=== PATIENT | female | born 1975 | race Caucasian/White ===

== ENCOUNTER 2017-06-23 18:31 | Emergency (ER) | payer OTHER ==
[2017-06-23] MEDS ORDERED: SUMAtriptan SQ* 6 MG/0.5 ML VIAL SUBCUT ONE (19:46)
[2017-06-23] MEDS ORDERED: SUMAtriptan SQ* 6 MG/0.5 ML VIAL ONE (19:47)
--- NOTE | 2017-06-23 19:53 | UC ---
Wanda Gallegos Gabriel, scribed for Tawana Walters MD on 06/23/17 at 1945 . Headache HPI - HPI Summary HPI Summary: This patient is a 42 year old F presenting to [facility] with a chief complaint of migraine JAVIER since yesterday that is getting worse. The patient rates the pain 9/ 10 in severity and describes it as crushing pain across frontal region. Patient reports photophobia, chills, lightheaded. Pt with nausea, no vomiting. Pt states has a h/o migraines and this feels the same. Pt states previously treated with imitrex. Pt does not currently have any. Pt has not had a migraine in 2-3 years. Patient denies ear pain, vision changes, and sore throat. She has taken ASA with no relief, pt is requesting Imitrex. She has a history of migraines and they are usually triggered by her period. Patient says these symptoms are similar to ones from her previous migraines. She was able to drive herself here without difficulty except for car lights. LNMP was 10 days ago. Medications reviewed on this visit. - History Of Current Complaint Chief Complaint: UCHeadache Stated Complaint: HEADACHE Time Seen by Provider: 06/23/17 19:37 Hx Obtained From: Patient Hx Last Menstrual Period: 06/15/17 Onset/Duration: Lasting Days - 1, Still Present Pain Intensity: 9 Pain Scale Used: 0-10 Numeric Timing: Constant Character: Throbbing, Pressure, Migraine Aggravating Factor(s): Bright Lights Associated Signs And Symptoms: Positive: Dizziness, Nausea, Other (Noted In Comments) - photophobia, chills, lightheaded, and productive cough - Allergies/Home Medications Allergies/Adverse Reactions: Allergies Allergy/AdvReac Type Severity Reaction Status Date / Time Penicillins Allergy Hives Verified 06/23/17 18:59 Home Medications: Home Medications Ibuprofen [Ibuprofen 200 MG] 200 mg PO ONCE 06/23/17 [History Confirmed 06/23/17 ] PMH/Surg Hx/FS Hx/Imm Hx Previously Healthy: No Neurological History: Migraine Psychological History: Other - PTSD Other Psychological History: PTSD - Surgical History Surgical History: Yes Surgery Procedure, Year, and Place: September 2016 - fibroid removal - Family History Known Family History: Negative: Cardiac Disease - Social History Occupation: Employed Part-time - works weekends Lives: With Family - children Alcohol Use: Daily Alcohol Amount: 1-2 drinks/ day Substance Use Type: None Smoking Status (MU): Never Smoked Tobacco Review of Systems Constitutional: Chills Gastrointestinal: Nausea Neurological: Headache, Other - photophobia, lightheaded All Other Systems Reviewed And Are Negative: Yes Physical Exam Triage Information Reviewed: Yes Appearance: Well-Appearing, Pain Distress - lights off, somehat anxious, appears uncomfortable appropriate Vital Signs: Initial Vital Signs Temp 98.2 F 06/23/17 19:01 Pulse 68 06/23/17 19:01 Resp 20 06/23/17 19:01 BP 122/84 06/23/17 19:01 Pulse Ox 100 06/23/17 19:01 Vital Signs Reviewed: Yes Eyes: Positive: Other: - photophobia ENT Exam: Normal ENT: Positive: Normal ENT inspection, Hearing grossly normal, Pharynx normal Dental Exam: Normal Neck exam: Normal Neck: Positive: Supple, Nontender, No Lymphadenopathy Respiratory Exam: Normal Respiratory: Positive: Chest non-tender, Lungs clear, Normal breath sounds, No respiratory distress, No accessory muscle use Cardiovascular Exam: Normal Cardiovascular: Positive: RRR, No Murmur, Pulses Normal Abdominal Exam: Normal Abdomen Description: Positive: Nontender, No Organomegaly, Soft Bowel Sounds: Positive: Present Musculoskeletal Exam: Normal Musculoskeletal: Positive: Strength Intact Neurological Exam: Normal Neurological: Positive: Alert Psychological Exam: Normal Psychological: Positive: Normal Response To Family Skin Exam: Normal Re-Evaluation - Re-Evaluation First Eval Re-Evaluation Time: 20:10 Change: Improved Comment: Headache has resolved after she was given Imitrex, she is drinking water to try to resolve her wooziness. Will continue to monitor photophobia improved Second Eval Re-Evaluation Time: 20:29 Change: Improved - Patient has improved after being hydrated. Comment: Pt states feeling much better appears improved pt ambulating around department, no nphotophobia taking po. Will discharge recommend f/u with PCP at [facility]. Recommend to ED with any concerns, change Headache Course/Dx - Course Course Of Treatment: This patient is a 42 year old F presenting to [facility] with a chief complaint of JAVIER since yesterday that is getting worse. She has a history of migraines. Will give 1 dose of imitrex and monitor. If little improvement, will likely send to ED for further evaluation and treatment. Pt comfortable and in agreement with plan - Differential Dx/Diagnosis Provider Diagnoses: migraine Discharge - Discharge Plan Condition: Stable Disposition: HOME Patient Education Materials: Migraine Headache (ED) Referrals: [facility] [Provider Group] No Primary Care Phys,NOPCP [Primary Care Provider] - Additional Instructions: Stay well hydrated. Drink plenty of non-alcoholic, non-caffinated beverages Okay to alternate ibuprofen (advil, motrin) adnd tylenol every 3 hours for pain and fever Contact your doctor at [facility] to schedule a follow-up appointment. If your pain returns or you have other questions or concerns - it is recommended you go to the emergency department for further evaluation The documentation as recorded by the Wanda fish Gabriel accurately reflects the service I personally performed and the decisions made by me, Tawana Walters MD.
[2017-06-23 20:13] VITALS: BP 141/96
== END 2017-06-23 21:04 | disposition home or self-care (01) ==
LOC: UCEAST 18:31
DX: G43.909 Migraine, unspecified, not intractable, without status migrainosus (principal); Z88.0 Allergy status to penicillin
CPT/HCPCS: 96372; 99202; G0463; J3030